=== PATIENT | female | born 1970 | race Caucasian/White ===

== ENCOUNTER → 2017-01-25 | Outpatient (CLI) | payer OTHER ==
--- NOTE | 2017-01-25 12:55 | REPMRS ---
Patient History The patient states she had a clinical breast exam in January 2017.Patient has had a 10 pound weight loss since last mammogram.Patient had first child at age 40. Family history of prostate cancer in father at age 70. Taking hormonal contraceptives for 4 years. Digital Mammo Screening Bilat: January 25, 2017 - Exam #: [id number] Bilateral CC and MLO view(s) were taken. Technologist: Christie Rose, Technologist Prior study comparison: January 19, 2016, bilateral digital mammo screening bilat performed at [facility]. January 09, 2015, bilateral digital mammo screening bilat performed at [facility]. 2012, bilateral digital woman screen mammo, [facility]. FINDINGS: There are scattered fibroglandular densities. There is a moderate amount of residual fibroglandular tissue which is fairly symmetric. There is no interval development of dominant mass, architectural distortion, or clustered microcalcification typical of malignancy. There has been no change in the appearance of the mammogram from the prior studies. ASSESSMENT: BI-RADS/ACR category 1 mammogram. Negative. Recommendation Routine screening mammogram of both breasts in 1 year (for women over age 40). This mammogram was interpreted with the aid of an FDA-approved computer-aided dectection system. Electronically Signed By: Slade Landaverde MD 01/25/17 0025
== END ==
LOC: M RAD 11:02
PROVIDERS: ATTEND Obstetrics & Gynecology
DX: Z12.4 Encounter for screening for malignant neoplasm of cervix (principal)

== ENCOUNTER → 2017-09-14 | Outpatient (CLI) | payer OTHER ==
[2017-09-14 13:17] LABS: BASO % 0.5 % (0.0-1.0); EOS # 0.1 10^3/uL (0.0-0.50); EOS % 0.9 % (0.0-3.0); IMMATURE GRANULOCYTE % 0.3 % (0-0); LYMPH # 1.8 10^3/uL (1.5-4.5); LYMPH % 24.7 % (24.0-44.0); MEAN CORPUSCULAR HEMOGLOBIN 29.3 pg (27.0-33.0); MEAN CORPUSCULAR HGB CONC 33.5 g/dl (32.0-36.5); MEAN CORPUSCULAR VOLUME 87.4 fl (80.0-96.0); MONO # 0.7 10^3/uL (0.0-0.8); MONO % 8.9 % (0.0-5.0); NEUTROPHILS # 4.8 10^3/uL (1.8-7.7); NEUTROPHILS % 64.7 % (36.0-66.0); PLATELET COUNT, AUTOMATED 264 10^3/uL (150-450); RED CELL DISTRIBUTION WIDTH 12.4 % (11.5-14.5); WHITE BLOOD COUNT 7.4 10^3/uL (4.0-10.0)
[2017-09-14 13:46] LABS: PROLACTIN 5.4 NG/ML
[2017-09-14 13:52] LABS: FREE T4 1.09 NG/DL (0.76-1.46)
== END ==
LOC: M WUC 10:34
PROVIDERS: ATTEND Nurse Practitioner Women's Health
DX: N94.6 Dysmenorrhea, unspecified (principal); N92.6 Irregular menstruation, unspecified

== ENCOUNTER → 2017-11-02 | Outpatient (CLI) | payer OTHER ==
[2017-11-02 09:44] LABS: ANION GAP 7 MEQ/L (8-16); BLOOD UREA NITROGEN 11 MG/DL (7-18); CALCIUM LEVEL 8.8 MG/DL (8.5-10.1); CARBON DIOXIDE LEVEL 28 MEQ/L (21-32); CHLORIDE LEVEL 105 MEQ/L (98-107); CREATININE FOR GFR 0.81 MG/DL (0.55-1.02); GLOMERULAR FILTRATION RATE > 60.0 (>58); GLUCOSE, FASTING 97 MG/DL (70-100); POTASSIUM SERUM 3.9 MEQ/L (3.5-5.1); SODIUM LEVEL 140 MEQ/L (136-145)
== END ==
LOC: M LAB 08:46
DX: I10 Essential (primary) hypertension (principal)
CPT/HCPCS: 93005

== ENCOUNTER 2017-11-10 05:44 | Day surgery (SDC) | payer OTHER ==
[2017-11-10] MEDS ORDERED: NEOSTIGMINE 10 MG/10 ML VIAL (J2710) (05:45)
[2017-11-10 06:03] LABS: HEMATOCRIT 42.1 % (36.0-47.0); HEMOGLOBIN 14.3 g/dl (12.0-16.0); MEAN CORPUSCULAR HEMOGLOBIN 29.3 pg (27.0-33.0); MEAN CORPUSCULAR VOLUME 86.3 fl (80.0-96.0); PLATELET COUNT, AUTOMATED 245 10^3/uL (150-450); RED BLOOD COUNT 4.88 10^6/uL (4.00-5.40); RED CELL DISTRIBUTION WIDTH 12.6 % (11.5-14.5); WHITE BLOOD COUNT 6.8 10^3/uL (4.0-10.0)
[2017-11-10 06:15] LABS: CONTROL LINE HCG INT CTR LINE PRESENT; HCG, SERUM QUALITATIVE NEGATIVE (NEGATIVE)
[2017-11-10] MEDS: LR 1,000 ML IV ×4 (06:26→20:23)
[2017-11-10] MEDS ORDERED: MIDAZOLAM INJ 2 MG/2 ML VIAL (J2250) As Ordered (07:14)
[2017-11-10] MEDS ORDERED: ONDANSETRON 4MG/2ML VIAL (J2405) As Ordered (07:14)
[2017-11-10] MEDS ORDERED: ROCURONIUM BROMIDE 50 MG/5 ML VIAL As Ordered ×2 (07:14→08:53)
[2017-11-10] MEDS ORDERED: PROPOFOL 200 MG/20 ML VIAL As Ordered (07:14)
[2017-11-10] MEDS ORDERED: fentaNYL 100 MCG/2 ML INJECTION (J3010) As Ordered (07:14)
[2017-11-10] MEDS ORDERED: LIDOCAINE 2% INJ 100 MG/5 ML SDV (FOR ANES.) As Ordered (07:14)
[2017-11-10] MEDS ORDERED: GLYCOPYRROLATE INJ 0.2 MG/ML 2 ML VIAL As Ordered (07:15)
[2017-11-10] MEDS ORDERED: NEOSTIGMINE 10 MG/10 ML VIAL (J2710) As Ordered (07:15)
[2017-11-10] MEDS ORDERED: HYDROmorphone HCL 2 MG/ML 1ML VIAL (J1170) As Ordered (07:15)
[2017-11-10] MEDS ORDERED: ceFAZolin 2 GM/D5W 50 ML IV BAG (J0690 PER 500MG) As Ordered (07:33)
[2017-11-10] MEDS ORDERED: ETHINYL ESTRADIOL PO (09:00)
[2017-11-10] MEDS ORDERED: LEVONORGESTREL PO (09:00)
[2017-11-10] MEDS: METHYLENE BLUE 0.5% (5MG/ML) 10 ML AMP (PROVAYBLUE)(Q9968 PER 1MG) As Ordered (10:05)
[2017-11-10] MEDS ORDERED: HYDROmorphone HCL 1 MG/ML SYRINGE (J1170) IV (10:30)
[2017-11-10] MEDS ORDERED: fentaNYL 100 MCG/2 ML INJECTION (J3010) IV (10:30)
[2017-11-10] MEDS ORDERED: PERCOCET 5MG/325MG TAB PO (10:30)
[2017-11-10] MEDS ORDERED: ONDANSETRON 4MG/2ML VIAL (J2405) IV ×2 (10:30→10:45)
[2017-11-10] MEDS ORDERED: MORPHINE 1MG/ML IN 0.9% NACL 100ML IV BAG As Ordered (10:35)
[2017-11-10] MEDS ORDERED: NALOXONE INJ 0.4 MG/1 ML VIAL (J2310) IV (10:45)
[2017-11-10] MEDS ORDERED: MORPHINE 1MG/ML IN 0.9% NACL 100ML IV BAG IV (10:45)
[2017-11-10] MEDS ORDERED: EPIDURAL/PCA KEYS XX (10:45)
[2017-11-10] MEDS ORDERED: diphenhydrAMINE INJ 50MG/ML VIAL (J1200) IV (10:45)
[2017-11-10] MEDS ORDERED: NALBUPHINE HCL 10 MG/ML AMP (J2300) IV (10:45)
[2017-11-10] MEDS: amLODIPine 5 MG TAB PO (13:13)
[2017-11-10] MEDS: IBUPROFEN 600 MG TAB PO ×2 (13:13→22:14)
[2017-11-10] MEDS: LEVOTHYROXINE 25MCG TABLET (0.025MG) PO (13:23)
[2017-11-10] MEDS: BENAZEPRIL 5 MG TAB PO (17:31)
[2017-11-10] MEDS: HYDROXYCHLOROQUINE 200 MG TAB PO (20:22)
[2017-11-10] MEDS: traZODone 50 MG TAB PO (20:23)
[2017-11-11] MEDS: LR 1,000 ML IV ×2 (03:04→10:49)
[2017-11-11] MEDS: IBUPROFEN 600 MG TAB PO (05:04)
[2017-11-11] MEDS ORDERED: LEVOTHYROXINE 25MCG TABLET (0.025MG) PO (06:00)
[2017-11-11] MEDS: LEVOTHYROXINE 25MCG TABLET (0.025MG) PO (06:23)
[2017-11-11] MEDS: NORCO, ANEXSIA 5/325MG TABLET (HYDROcodone/ACETAMINOPHEN) PO (06:57)
[2017-11-11 06:58] LABS: HEMATOCRIT 36.2 % (36.0-47.0); HEMOGLOBIN 12.4 g/dl (12.0-16.0); MEAN CORPUSCULAR HEMOGLOBIN 29.7 pg (27.0-33.0); MEAN CORPUSCULAR HGB CONC 34.3 g/dl (32.0-36.5); MEAN CORPUSCULAR VOLUME 86.8 fl (80.0-96.0); PLATELET COUNT, AUTOMATED 236 10^3/uL (150-450); RED BLOOD COUNT 4.17 10^6/uL (4.00-5.40); RED CELL DISTRIBUTION WIDTH 12.7 % (11.5-14.5); WHITE BLOOD COUNT 13.2 10^3/uL (4.0-10.0)
[2017-11-11] MEDS: amLODIPine 5 MG TAB PO (09:28)
[2017-11-11] MEDS: HYDROXYCHLOROQUINE 200 MG TAB PO (09:28)
[2017-11-11] MEDS: BENAZEPRIL 5 MG TAB PO (09:28)
== END 2017-11-11 11:45 | disposition home or self-care (01) ==
LOC: M SDC 05:44 → M MS5PR 11:15
DX: R10.2 Pelvic and perineal pain (principal); N94.10 Unspecified dyspareunia; N93.9 Abnormal uterine and vaginal bleeding, unspecified; N99.4 Postprocedural pelvic peritoneal adhesions; R01.1 Cardiac murmur, unspecified; E05.90 Thyrotoxicosis, unspecified without thyrotoxic crisis or storm; I10 Essential (primary) hypertension; F41.9 Anxiety disorder, unspecified; F32.9 Major depressive disorder, single episode, unspecified; G43.909 Migraine, unspecified, not intractable, without status migrainosus; M32.9 Systemic lupus erythematosus, unspecified; M19.90 Unspecified osteoarthritis, unspecified site; M54.9 Dorsalgia, unspecified; Z79.899 Other long term (current) drug therapy; Z79.82 Long term (current) use of aspirin; Z88.0 Allergy status to penicillin; Z88.2 Allergy status to sulfonamides
CPT/HCPCS: 58571

== ENCOUNTER → 2018-02-22 | Outpatient (CLI) | payer OTHER | LOC: M WHC 13:14 | DX: Z12.31 Encounter for screening mammogram for malignant neoplasm of breast (principal) ==